=== PATIENT | male | born 1970 ===

== ENCOUNTER 2016-07-18 05:13 | Day surgery (SDC) | payer OTHER ==
[2016-07-18] VITALS (10 sets, daily range): BP systolic 106–121; BP diastolic 59–77
[~2016-07-18] VITALS: Ht 160 cm; Wt 99.8 kg
[2016-07-18] MEDS ORDERED: NKM (05:56)
[2016-07-18] MEDS ORDERED: celeBREX 200mg Cap **SURGERY PATIENTS ONLY ORAL ONE (06:00)
[2016-07-18] MEDS ORDERED: oxyCONTIN 20mg tab ORAL ONE (06:00)
[2016-07-18] MEDS ORDERED: ceFAZolin 1gm in D5W 55ml IVP ONE (06:00)
[2016-07-18] MEDS ORDERED: Kenalog-40 1ml Vial ONE (06:38)
[2016-07-18] MEDS ORDERED: Ketorolac 30mg Inj ONE (06:38)
[2016-07-18] MEDS ORDERED: Morphine Sulfate PF 10 ML ONE (06:38)
[2016-07-18] MEDS ORDERED: Bupivacaine w/Epi 0.25% 30ml Vial INJ ONE (06:39)
[2016-07-18] MEDS ORDERED: Bupivacaine 0.25% Inj 30ml INJ ONE (06:39)
[2016-07-18] MEDS ORDERED: EPINEPHrine 1mg/1ml Amp ONE (06:39)
[2016-07-18] MEDS ORDERED: Lidocaine 1% 10mg/ml/EPI 0.01mg/ml 50ml INJ ONE (06:45)
[2016-07-18] MEDS ORDERED: Duramorph PF 10mg/10ml amp IV ONE (06:45)
[2016-07-18] MEDS ORDERED: LR 1000ml ONE (07:00)
[2016-07-18] MEDS ORDERED: Propofol 10mg/ml 20ml IV ONE (07:00)
[2016-07-18] MEDS ORDERED: Lidocaine 1% MPF 10mg/ml 5ml ONE ×2 (07:00→07:01)
[2016-07-18] MEDS ORDERED: Metoclopramide 10mg/2ml Inj ONE (07:00)
[2016-07-18] MEDS ORDERED: fentaNYL 100 mcg/2 mL IV ONE (07:00)
--- NOTE | 2016-07-18 07:11 | Pre-Procedure Note/Attestation ---
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 I attest that, if there was a reasonable possibility of needing a blood transfusion, the patient (or the patient's legal abrasives sales representative) was given the [facility] standardized written summary, pursuant to the [employer] [place] Blood Safety Act ([place] Health and Safety Code # 1645, as amended). I attest that I re-evaluated the patient just prior to the surgery and that there has been no change in the patient's H&P, except as documented below: ENEDELIA STEPHENS July 18, 2016 07:11
--- NOTE | 2016-07-18 07:12 | Operative Note - PDOC ---
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
[2016-07-18] MEDS ORDERED: fentaNYL 100 mcg/2 mL IV PRN (08:15)
[2016-07-18] MEDS ORDERED: Midazolam 2mg/2ml Inj IVP PRN (08:15)
[2016-07-18] MEDS ORDERED: Ketorolac 30mg Inj IV PRN (08:15)
[2016-07-18] MEDS ORDERED: Hydromorphone 0.5mg/0.5ml inj IVP PRN (08:15)
--- NOTE | 2016-07-18 08:15 | Anethesia Preoperative Eval ---
Anesthesia Pre-op PMH/ROS General Date of Evaluation: July 18, 2016 Time of Evaluation: 06:55 Anesthesiologist: Dorene ASA Score: ASA 1 Mallampati Score Class I : Soft palate, uvula, fauces, pillars visible Class II: Soft palate, uvula, fauces visible Class III: Soft palate, base of uvula visible Class IV: Only hard plate visible Allergies: Coded Allergies: No Known Allergies (Unverified , 07/17/16) Anesthesia Pre-op Phys. Exam Physician Exam Last Vital Signs Date Time Temp Pulse Resp B/P Pulse Ox O2 Delivery O2 Flow Rate FiO2 07/18/16 05:56 98.2 56 20 121/77 95 Room Air Scar Catherine MD July 18, 2016 08:15
--- NOTE | 2016-07-18 08:16 | Immediate Post-Op Evaluation ---
Immediate Post-Op Evalulation Immediate Post-Op Evalulation Procedure: Knee arthroscopy Date of Evaluation: July 18, 2016 Time of Evaluation: 08:16 Nausea: No Vomiting: No Patient Status: awake Given Within 1 Hr of Incision: Yes Scar Catherine MD July 18, 2016 08:16
--- NOTE | 2016-07-18 09:24 | 48 Hour Post Anesthesia Eval ---
Post Anesthesia Evaluation Procedure: Knee arthroscopy Date of Evaluation: July 18, 2016 Time of Evaluation: 09:24 Nausea: No Vomiting: No Mental Status/LOC: patient returned to baseline Follow-up care needed: ready to discharge Scar Catherine MD July 18, 2016 09:24
[2016-07-18] MEDS ORDERED: HYDROmorphone 1mg/ml Carpuject SUBQ PRN (14:01)
[2016-07-18] MEDS ORDERED: Norco 5mg/325mg tab ORAL PRN (14:01)
[2016-07-18] MEDS ORDERED: D5 1/2NS 1,000 ML IV SCH (14:01)
[2016-07-18] MEDS ORDERED: Tylenol #3 tab (300mg/30mg) ORAL PRN (14:01)
--- NOTE | 2016-07-18 17:29 | Operative Note - Dictated ---
DATE OF OPERATION: 07/18/2016 PREOPERATIVE DIAGNOSES: 1. Status post right total knee arthroplasty. 2. Arthrofibrosis of right knee, status post total knee arthroplasty. POSTOPERATIVE DIAGNOSES: 1. Status post right total knee arthroplasty. 2. Arthrofibrosis of right knee, status post total knee arthroplasty. PROCEDURES: 1. Right knee diagnostic arthroscopy. 2. Right knee medial and lateral patellofemoral compartment synovectomy, 3. Manipulation under anesthesia of the right knee. SURGEON: Shan Cohn M.D. ANESTHESIA: General. INDICATION FOR PROCEDURE: The patient is a pleasant gentleman after a right total knee arthroplasty. He has been having significant arthrofibrosis with difficulty flexion. After failing conservative treatment for two years, he elected to undergo manipulation under anesthesia understanding that this may or may not improve his outcome. The risks, limitations, expectations, and complications of procedure were discussed in detail. All questions were addressed. DESCRIPTION OF PROCEDURE: An informed consent was obtained. The patient was taken to the operative room and placed under general anesthesia. Tourniquet was applied to the right proximal thigh. Right leg was prepped and draped in a sterile manner. At this point, examination under anesthesia was performed. The knee came out to full extension and bent to 120 degrees. It has good stability, full extension, 10 degrees flexion, and 90 degrees flexion. Inferolateral stab incision was then made. Trocar was introduced into the knee joint. There is some hypertrophic synovial tissue in medial and lateral patellofemoral compartment. The medial working portal was established and a complete synovectomy of the medial and lateral patellofemoral compartment was performed. Once complete synovectomy was performed, the intra-articular injection containing 30 mg of Toradol, 40 mL of Kenalog, and 0.25% Marcaine with epinephrine was injected. The patient was awoken and taken to the recovery room with stable vital signs. ESTIMATED BLOOD LOSS: None. COMPLICATIONS: None. SPECIMENS: None. IMPLANTS: None. Shan Cohn M.D. DR: RICKY JOB#: [id number] CC: [email or web address]
== END 2016-07-18 10:30 | disposition home or self-care (01) ==
LOC: SUR 05:13
DX: M24.661 Ankylosis, right knee (principal); M25.561 Pain in right knee; Z96.651 Presence of right artificial knee joint; G47.00 Insomnia, unspecified; K21.9 Gastro-esophageal reflux disease without esophagitis; Z87.891 Personal history of nicotine dependence
CPT/HCPCS: 29876; J1885; J2274; J2405; J2704; J2765; J3010; J3301; J3490; J7120; 94003; 94150